=== PATIENT | male | born 1980 | race Caucasian/White ===

== ENCOUNTER 2018-11-19 17:04 | Emergency (ER) | payer OTHER ==
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
[2018-11-19 17:28] LABS: PLATELET COUNT 323 10^3/uL (150-400)
[2018-11-19] MEDS ORDERED: IOPAMIDOL (ISOVUE 370) 100 ML BTL IV ONE (17:45)
[2018-11-19] MEDS ORDERED: IOPAMIDOL (ISOVUE-300) 100 ML BTL ONE (17:47)
[2018-11-19 19:51] VITALS: BP 126/85
== END 2018-11-19 19:50 | disposition home or self-care (01) ==
DX: S20.211A Contusion of right front wall of thorax, initial encounter (principal); V49.50XA Passenger injured in collision with unspecified motor vehicles in traffic accident, initial encounter; Y92.410 Unspecified street and highway as the place of occurrence of the external cause
CPT/HCPCS: 82435-PO; 82565-PO; 82947-PO; 84132-PO; 84295-PO; 84520-PO; 85014-ER; Q9967